=== PATIENT | male | born 1970 | race Caucasian/White ===

== ENCOUNTER 2018-10-20 09:10 | Inpatient (IN) | payer OTHER ==
[2018-10-20] VITALS (15 sets, daily range): BP systolic 100–126; BP diastolic 53–81
[~2018-10-20] VITALS: Ht 190.5 cm; Wt 101.4 kg
[~2018-10-20 09:10] MED LIST: IBUP-2697 PO; cefazolin/dext.iso 2gm/100 ML IV ONE; famotidine 20mg tablet PO ONE; oxyCODONE SR 10mg (sust. release) tab -2 tabs (20mg) PO ONE; ringers solution, lacted 1,000 ML IV SCH; vancomycin inj 1,500 MG in normal saline 300ml IV soln IV ONE
[2018-10-20] MEDS ORDERED: tranexamic acid inj. 1,000 MG in normal saline 100ml IV soln 100 ML IV ONE ×3 (09:40→17:40)
[2018-10-20 09:50] LABS: BASOPHILS # (AUTO) 0.1 X10'3 (0-0.2); BASOPHILS % (AUTO) 0.7 % (0-1); EOSINOPHILS % (AUTO) 0.6 % (0-6); HEMATOCRIT 50.5 % (42.0-52.0); HEMOGLOBIN 17.4 g/dl (14.0-17.9); LYMPHOCYTES # (AUTO) 1.5 X10'3 (1.1-4.8); MEAN CORPUSCULAR HEMOGLOBIN 30.6 PG (27.0-31.0); MEAN CORPUSCULAR HGB CONC 34.5 g/dL (33.0-36.5); MEAN CORPUSCULAR VOLUME 88.8 FL (78-98); MEAN PLATELET VOLUME 8.4 FL (7.4-10.4); MONOCYTES # (AUTO) 0.5 X10'3 (0-0.9); MONOCYTES % (AUTO) 7.4 % (2-12); NEUTROPHILS % (AUTO) 70.3 % (42-75); PLATELET COUNT 256 X10'3 (140-440); RED BLOOD COUNT 5.68 X10'6 (4.70-6.10); RED CELL DISTRIBUTION WIDTH 14.3 % (11.5-14.5); WHITE BLOOD COUNT 7.1 X10'3 (4.5-11.0)
[2018-10-20 09:59] LABS: ALANINE AMINOTRANSFERASE 24 U/L (12-78); ALBUMIN 3.9 G/DL (3.4-5.0); ALBUMIN/GLOBULIN RATIO 0.9 (1.1-1.5); ALKALINE PHOSPHATASE 72 IU/L (46-116); ANION GAP 6 (8-16); ASPARTATE AMINO TRANSFERASE 12 U/L (10-37); BILIRUBIN,TOTAL 1.8 MG/DL (0.1-1.0); BLOOD UREA NITROGEN 16 MG/DL (7-18); BUN/CREATININE RATIO 17.4 (5.4-32.0); CALCIUM 8.8 MG/DL (8.5-10.1); CHLORIDE 107 MMOL/L (99-107); CREATININE 0.92 MG/DL (0.60-1.10); GLUCOSE 102 MG/DL (70-104); SODIUM 142 MMOL/L (135-145); TOTAL CARBON DIOXIDE 29.3 MMOL/L (24-32); TOTAL PROTEIN 8.1 G/DL (6.4-8.2); eGFR 87 ML/MIN
[2018-10-20 10:08] LABS: PRE OP PARTIAL THROMB. TIME 31 SECONDS (22-32)
[2018-10-20] MEDS ORDERED: morphine 10mg/ml inj. ONE (11:53)
[2018-10-20] MEDS ORDERED: ROPIVAcaine 0.5% (5mg/ml) 30ml vial ONE ×2 (11:54→16:36)
[2018-10-20] MEDS ORDERED: vancomycin 1,000mg inj ONE (11:54)
[2018-10-20] MEDS ORDERED: ceFAZolin 1000mg inj ONE (11:54)
[2018-10-20] MEDS ORDERED: epiNEPHrine 1 mg/ml inj ONE (11:54)
[2018-10-20] MEDS ORDERED: tetracaine 1% (10mg/ml) pres. free inj. ONE (12:35)
[2018-10-20] MEDS ORDERED: MIDAZolam 1mg/ml 10ml vial ONE (12:37)
[2018-10-20] MEDS ORDERED: fentaNYL/PF 50MCG/1 ML 2ML syringe ONE (12:38)
[2018-10-20] MEDS ORDERED: propofol inj 20 ML IV ONE ×4 (12:52→16:36)
[2018-10-20] MEDS ORDERED: ketorolac trometh. 30mg/ml inj. ONE (13:06)
[2018-10-20] MEDS ORDERED: ringers solution, lacted 1,000 ML IV SCH (13:21)
[2018-10-20] MEDS ORDERED: calcium chloride 100 MG/1 ML inj IV ONE (13:23)
[2018-10-20] MEDS ORDERED: proCHLORperazine 10 MG/2 ml inj IV PRN (13:25)
[2018-10-20] MEDS ORDERED: meperidine/PF 25mg/ml syringe IV PRN ×3 (13:25)
[2018-10-20] MEDS ORDERED: ondansetron/PF 4mg/2ml inj IV PRN ×2 (13:25→16:40)
[2018-10-20] MEDS ORDERED: morphine 4 MG/ML inj SYRINge IV PRN ×2 (13:25)
[2018-10-20] MEDS ORDERED: Thrombin (Bovine) 5,000 unit vial TP ONE (13:49)
[2018-10-20] MEDS ORDERED: ROPIVAcaine 0.2%/PF PAIN PUMP 400 ML IJ SCH (14:00)
--- NOTE | 2018-10-20 16:39 | NUR ---
Received from OR via ortho bed, accompanied by Anesthesiologist CONSUELO and report given by Anesthesiolgist. Warming blanket placed on patient for comfort. Right knee with ayala dressing, leg wrap and powder pack. Pain medicine ball to be attached. Pt responsive to questions, good pulse right foot, IV to right wrist with LR at 100cc/hr. Glasses and other belongings at bedside. Guards present. SCDs placed on patient.
[2018-10-20] MEDS ORDERED: bisacodyl 10mg suppository rectal RC PRN (16:40)
[2018-10-20] MEDS ORDERED: acetaminophen 325mg tablet PO PRN (16:40)
[2018-10-20] MEDS ORDERED: oxyCODONE IR 5mg (immed. release) tablet PO PRN (16:40)
[2018-10-20] MEDS ORDERED: HYDROmorphone inj. 0.5 MG/0.5 ML DISP.SYRIN IV PRN (16:40)
[2018-10-20] MEDS ORDERED: diphenhydrAMINE 25mg capsule PO PRN ×2 (16:40)
[2018-10-20] MEDS ORDERED: magnesium hydroxide 30ml (MOM) UD suspension PO PRN (16:40)
--- NOTE | 2018-10-20 17:09 | NUR ---
Report called to receiving nurse HAILE Coleman. Transferred via ortho bed. Belongings sent with patient on bed. Special Issues communicated to receiving nurse. Dressing remains CDI. Cannon catheter emptied and output documented but also communicated to angel BE. Post op vitals begun. BLL, call light within reach, chart given to RN. Pt alert and oriented, VS remained stable. Guards remain at bedside. Pulses palpable, SCDs still on patient.
[2018-10-20] MEDS: potassium cl 20mEq in 1/2 NS 1,000 ML IV SCH (17:20)
[2018-10-20] MEDS: acetaminophen 325mg tablet PO SCH (19:41)
[2018-10-20] MEDS ORDERED: vancomycin/NS 1 GM ADD-VANTAGE 250 ML IV SCH (20:00)
[2018-10-20] MEDS ORDERED: sennosides 8.6mg tablet PO SCH (21:00)
[2018-10-20] MEDS: gabapentin 300mg capsule PO SCH (21:42)
[2018-10-20] MEDS: oxyCODONE IR 5mg (immed. release) tablet PO PRN (21:43)
--- NOTE | 2018-10-20 22:00 | NUR ---
ON-Q increased from 6ml to 8ml. Patient complaining of pain of 8/10. Will continue with care.
[2018-10-21] MEDS: HYDROmorphone 1 mg/ml syringe IV PRN ×2 (00:10→07:53)
[2018-10-21] MEDS: ceFAZolin 1GM/D5W- ADD-VANTAGE 50 ML IV SCH ×2 (00:10→07:51)
--- NOTE | 2018-10-21 01:30 | NUR ---
Patient still complaining of pain 10/ dilaudid given. F/C in place draining clear urine with discontinue this morning. Right knee HARJEET dressing in place with cold pack. CDI, right leg has good circulation and pulse present. Patient shackle to bilateral legs with 2 guards in room. Will continue with care and monitor.
[2018-10-21 02:00] VITALS: BP 115/81
[2018-10-21] MEDS: acetaminophen 325mg tablet PO SCH ×2 (02:55→07:52)
[2018-10-21] MEDS: potassium cl 20mEq in 1/2 NS 1,000 ML IV SCH ×2 (02:55→08:05)
[2018-10-21] MEDS: oxyCODONE IR 5mg (immed. release) tablet PO PRN ×2 (05:14→09:40)
--- NOTE | 2018-10-21 05:42 | NUR ---
FC removed this morning at 0530. Patient tolerated well.
[2018-10-21 06:00] VITALS: BP 115/81
[2018-10-21 06:06] LABS: BASOPHILS % (AUTO) 0.2 % (0-1); EOSINOPHILS % (AUTO) 0.3 % (0-6); HEMATOCRIT 41.8 % (42.0-52.0); HEMOGLOBIN 14.5 g/dl (14.0-17.9); LYMPHOCYTES % (AUTO) 9.7 % (21-51); MEAN CORPUSCULAR HEMOGLOBIN 30.6 PG (27.0-31.0); MEAN CORPUSCULAR HGB CONC 34.8 g/dL (33.0-36.5); MEAN CORPUSCULAR VOLUME 88.2 FL (78-98); MEAN PLATELET VOLUME 8.6 FL (7.4-10.4); MONOCYTES # (AUTO) 0.8 X10'3 (0-0.9); MONOCYTES % (AUTO) 7.7 % (2-12); NEUTROPHILS # (AUTO) 8.7 X10'3 (1.8-7.7); NEUTROPHILS % (AUTO) 82.1 % (42-75); PLATELET COUNT 238 X10'3 (140-440); RED BLOOD COUNT 4.74 X10'6 (4.70-6.10); RED CELL DISTRIBUTION WIDTH 13.7 % (11.5-14.5); WHITE BLOOD COUNT 10.6 X10'3 (4.5-11.0)
--- NOTE | 2018-10-21 06:28 | NUR ---
Problems reprioritized. Patient report given, questions answered & plan of care reviewed with Obinna BE.
--- NOTE | 2018-10-21 06:44 | NUR ---
Patient in room ORTHO 4017. I have received report from Julissa BE and had the opportunity to ask questions and assume patient care.
[2018-10-21] MEDS: gabapentin 300mg capsule PO SCH (07:52)
[2018-10-21] MEDS ORDERED: enoxaparin 40mg/0.4ml syringe SQ SCH (08:00)
[2018-10-21] MEDS ORDERED: ASPI-1264 PO (09:04)
[2018-10-21] MEDS ORDERED: HYDR-4353 PO (09:05)
--- NOTE | 2018-10-21 10:15 | NUR ---
Patient discharged back to residential accompanied by guards, discharge instructions went over with patient and guards. patient stable for discharge
[2018-10-21] MEDS ORDERED: celeCOXIB 100mg capsule PO SCH (20:00)
[2018-10-22] MEDS ORDERED: acetaminophen 325mg tablet PO PRN (16:40)
== END 2018-10-21 10:10 | DRG 470 ==
LOC: PAS 09:10 → EEVIPCON 11:00 → OBSVTOIN 16:39 → ORTHO 4S 16:39
PROVIDERS: ADMIT Orthopaedic Surgery; ATTEND Orthopaedic Surgery
PROC: 3E0T3BZ Introduction of Anesthetic Agent into Peripheral Nerves and Plexi, Percutaneous Approach (ICD-10-PCS; 2018-10-20)
PROC: 8E0YXCZ Robotic Assisted Procedure of Lower Extremity (ICD-10-PCS; 2018-10-20)
PROC: 0SRC069 Replacement of Right Knee Joint with Oxidized Zirconium on Polyethylene Synthetic Substitute, Cemented, Open Approach (ICD-10-PCS; principal; 2018-10-20 12:31)
DX: M17.11 Unilateral primary osteoarthritis, right knee (principal); M23.200 Derangement of unspecified lateral meniscus due to old tear or injury, right knee; M25.461 Effusion, right knee; B19.20 Unspecified viral hepatitis C without hepatic coma; Z88.8 Allergy status to other drugs, medicaments and biological substances; Z79.899 Other long term (current) drug therapy
CPT/HCPCS: Z7506; Z7508; 36415; 80053; 82948; 85025; 85610; 85730; 87081; 93005; 97110; 97116; 97161; 97530; A4215; A4618; A7000; C1713; C1758; C1776; G0378; J0171; J0690; J1170; J1650; J1885; J2250; J2270; J2704; J2795; J3010; J3370; J3480; J7050; J7120

== ENCOUNTER 2022-06-16 17:14 | Emergency (ER) | payer MEDICAID, OTHER ==
[~2022-06-16] VITALS: Ht 193 cm; Wt 102.0 kg
[~2022-06-16 17:14] MED LIST changes: -cefazolin/dext.iso 2gm/100 ML IV ONE; -famotidine 20mg tablet PO ONE; -oxyCODONE SR 10mg (sust. release) tab -2 tabs (20mg) PO ONE; -ringers solution, lacted 1,000 ML IV SCH; -vancomycin inj 1,500 MG in normal saline 300ml IV soln IV ONE
[2022-06-16] MEDS ORDERED: ondansetron 4mg rapidly disintigrating tab PO ONE (17:20)
[2022-06-16] MEDS ORDERED: morphine 4 MG/ML inj SYRINge IV ONE (17:20)
[2022-06-16 18:08] LABS: CLARITY,URINE SLIGHTLY CLOUDY (Clear); COLOR,URINE YELLOW (Yellow); GLUCOSE, URINE NEGATIVE (Neg); KETONES,URINE NEGATIVE (Neg); LEUKOCYTE ESTERASE ,URINE NEGATIVE (Neg); NITRITES, URINE NEGATIVE (Neg); OCCULT BLOOD,URINE LARGE (Neg); PROTEIN,URINE 30 mg/dl (Neg); UROBILINOGEN,URINE 0.2 E.U/dL (0.2-1.0)
[2022-06-16 18:15] LABS: BASOPHILS % (AUTO) 0.3 % (0-1); EOSINOPHILS % (AUTO) 0.3 % (0-6); HEMATOCRIT 50.2 % (42.0-52.0); HEMOGLOBIN 17.6 g/dl (14.0-17.9); LYMPHOCYTES # (AUTO) 2.6 X10'3 (1.1-4.8); LYMPHOCYTES % (AUTO) 19.5 % (21-51); MEAN CORPUSCULAR VOLUME 88.4 FL (78-98); MEAN PLATELET VOLUME 8.6 FL (7.4-10.4); MONOCYTES # (AUTO) 1.3 X10'3 (0-0.9); MONOCYTES % (AUTO) 9.3 % (2-12); NEUTROPHILS # (AUTO) 9.5 X10'3 (1.8-7.7); NEUTROPHILS % (AUTO) 70.6 % (42-75); PLATELET COUNT 273 X10'3 (140-440); RED BLOOD COUNT 5.67 X10'6 (4.70-6.10); RED CELL DISTRIBUTION WIDTH 14.3 % (11.5-14.5); WHITE BLOOD COUNT 13.4 X10'3 (4.5-11.0)
[2022-06-16 18:23] LABS: BACTERIA,URINE FEW /HPF (Neg); RBC,URINE 20-50 /HPF (0-2); WBC,URINE 0-4 /HPF (0-4)
[2022-06-16 18:24] LABS: SQUAMOUS EPITHELIAL CELL,UR NONE SEEN /LPF (FEW); UA COLLECTION TYPE CLN CATCH MIDSTREAM
[2022-06-16 18:35] LABS: ALANINE AMINOTRANSFERASE 95 U/L (12-78); ALBUMIN 4.1 G/DL (3.4-5.0); ALKALINE PHOSPHATASE 90 IU/L (46-116); ANION GAP 12 (8-16); ASPARTATE AMINO TRANSFERASE 30 U/L (10-37); BILIRUBIN,TOTAL 1.8 MG/DL (0.1-1.0); BLOOD UREA NITROGEN 24 MG/DL (7-18); BUN/CREATININE RATIO 19.5 (10.0-20.0); CALCIUM 9.3 MG/DL (8.5-10.1); CHLORIDE 102 MMOL/L (99-107); CREATININE 1.23 MG/DL (0.60-1.10); GLUCOSE 93 MG/DL (70-104); LIPASE 129 U/L (73-393); POTASSIUM 3.3 MMOL/L (3.5-5.1); SODIUM 138 MMOL/L (135-145); TOTAL CARBON DIOXIDE 24.2 MMOL/L (24-32); TOTAL PROTEIN 8.3 G/DL (6.4-8.2); eGFR 62 ML/MIN
[2022-06-16] MEDS ORDERED: POTASSIUM BICARB 20meq eff tab 20 MEQ TABLET.EFF PO STA (18:42)
[2022-06-16] MEDS ORDERED: tamsulosin 0.4mg capsule PO STA (18:51)
[2022-06-16] MEDS ORDERED: HYDR-3965 PO (18:54)
[2022-06-16] MEDS ORDERED: FLO0.4C PO (18:54)
[2022-06-16 19:08] VITALS: BP 118/82
== END 2022-06-16 19:47 | disposition home or self-care (01) ==
LOC: ER 17:14
DX: N20.0 Calculus of kidney (principal); Z88.8 Allergy status to other drugs, medicaments and biological substances; Z79.899 Other long term (current) drug therapy
CPT/HCPCS: 36415; 74176; 76770; 80053; 81001; 83690; 85025; 96374; 99285; J2270

== ENCOUNTER 2023-07-23 23:39 | Emergency (ER) | payer MEDICAID ==
[~2023-07-23] VITALS: Ht 193 cm; Wt 104.5 kg
[2023-07-23 23:42] VITALS: TEMP 98.4
[2023-07-24] MEDS: HYDROcodone/acetaminophen 5mg/325mg tablet PO ONE (00:40)
[2023-07-24] MEDS: ketorolac trometh. 30mg/ml inj. IM ONE (00:40)
[2023-07-24] MEDS: ondansetron 4mg rapidly disintigrating tab PO ONE (00:40)
[2023-07-24] MEDS: ketorolac trometh inj. 60 MG/2 ML VIAL IM ONE (00:43)
[2023-07-24] MEDS ORDERED: ONDA8TAB13 PO (01:09)
[2023-07-24] MEDS ORDERED: HYDR-3965 PO (01:09)
[2023-07-24 01:15] VITALS: BP 130/90; PULSE 88; RESP 14; O2SAT 98
== END 2023-07-24 01:17 | disposition home or self-care (01) ==
LOC: ER 23:39
DX: M25.561 Pain in right knee (principal); Z88.8 Allergy status to other drugs, medicaments and biological substances; Z79.1 Long term (current) use of non-steroidal anti-inflammatories (NSAID); Z79.899 Other long term (current) drug therapy
CPT/HCPCS: 73560; 96372; 99284; J1885